=== PATIENT | female | born 1995 | race Caucasian/White ===

== ENCOUNTER 2020-10-29 14:50 | Emergency (ER) | payer MEDICAID ==
[~2020-10-29] VITALS: Ht 167.6 cm; Wt 75.0 kg
[2020-10-29] MEDS ORDERED: SODIUM CHLORIDE 0.9% 1,000 ML IV ONE (16:45)
[2020-10-29 16:51] LABS: BASOPHILS % 0.9 % (0.0-2.0); EOSINOPHILS % 0.3 % (0.0-5.0); HEMATOCRIT. 40.4 % (36.0-48.0); LYMPHOCYTES % 28.2 % (20.0-50.0); MEAN CORPUSCULAR HEMOGLOBIN 26.5 pg (28.0-32.0); MEAN PLATELET VOLUME 7.3 fl (7.4-10.4); MONOCYTES % 6.4 % (2.0-8.0); NEUTROPHILS % 64.2 % (40.0-76.0); PLATELET 315 x1000/uL (130-400); RED BLOOD CELL COUNT 4.92 mill/uL (4.2-5.4); RED CELL DISTRIBUTION WIDTH 13.8 % (11.6-14.6)
[2020-10-29 16:55] LABS: CHLORIDE 110 mEq/L (98-107)
[2020-10-29 16:59] LABS: ETHANOL BLOOD < 10 mg/dL
[2020-10-29] MEDS ORDERED: DIPHENHYDRAMINE 50MG/ML VIAL IM ONE (17:00)
[2020-10-29] MEDS ORDERED: LORAZEPAM 2MG/ML CPJ IV ONE (17:00)
[2020-10-29] MEDS ORDERED: HALOPERIDOL LACTATE 5MG/ML VIAL IM ONE (17:00)
[2020-10-29 17:13] LABS: HCG SCREEN NEGATIVE
[2020-10-30] MEDS ORDERED: POTASSIUM CHLORIDE 20MEQ TABLET SR PO ONE (01:15)
[2020-10-30 06:48] LABS: CLARITY URINE CLOUDY (CLEAR); COLOR URINE YELLOW (YELLOW); KETONES URINE 2+ (NEGATIVE); LEUKOCYTE ESTERASE URINE 2+ (NEGATIVE); NITRITE URINE NEGATIVE (NEGATIVE); OCCULT BLOOD URINE 1+ (NEGATIVE); PH URINE 6.5 (4.5-8.0); PROTEIN URINE TRACE (NEGATIVE); SPECIFIC GRAVITY URINE 1.029 (1.005-1.030)
[2020-10-30 07:04] LABS: *BARBITURATES SCREEN URINE NEGATIVE (NEGATIVE); *BENZODIAZEPINES SCREEN URINE NEGATIVE (NEGATIVE)
[2020-10-30 07:05] LABS: *COCAINE SCREEN URINE NEGATIVE (NEGATIVE); METHADONE URINE SCREEN NEGATIVE (NEGATIVE)
[2020-10-30 07:06] LABS: OPIATES URINE SCREEN NEGATIVE (NEGATIVE); PHENCYCLIDINE URINE SCREEN NEGATIVE (NEGATIVE)
[2020-10-30 07:07] LABS: *AMPHETAMINES SCREEN URINE PRESUMTIVE POSITIVE (NEGATIVE); CANNABINOID URINE SCREEN PRESUMTIVE POSITIVE (NEGATIVE)
[2020-10-30 07:30] VITALS: BP 141/70
== END 2020-10-30 08:04 | disposition home or self-care (01) ==
LOC: ER 14:59
DX: F15.10 Other stimulant abuse, uncomplicated (principal); F23 Brief psychotic disorder; F91.8 Other conduct disorders; F12.10 Cannabis abuse, uncomplicated; I10 Essential (primary) hypertension
CPT/HCPCS: 36415; 80048; 80305; 80307; 80320; 80329; 81003; 84703; 85025; 87077; 87086; 87186; 93005; 96361; 96372; 96374; 99285; J1200; J1630; J2060; J7030; G0480